=== PATIENT | female | born 1980 | race Caucasian/White ===

== ENCOUNTER 2017-01-14 22:22 | Emergency (ER) | payer OTHER ==
[2017-01-14 22:36] VITALS: BMI 24.6
--- NOTE | 2017-01-14 23:02 | PDOC ---
History of Present Illness - General History Source: Patient Exam Limitations: No Limitations - History of Present Illness Initial Comments: 01/14/17 23:12 The patient is a 36 year old female with significant past medical history of left breast CA s/p left mastectomy and diabetes who presents to the ED with 1 day of generalized malaise. Patients last chemotherapy session was on Wednesday and she received a neulasta shot on Wednesday. The following day she started having body aches with subjective fever and nausea. She denies any known sick contacts. The patient denies chills, cough, diaphoresis, SOB, chest pain, abdominal pain, vomiting, and diarrhea. Allergies: NKDA Social History: No alcohol, tobacco, or drug use reported. Past Surgical History: s/p left mastectomy PCP: Dr. Kay Kc <Belle Gallegos - Last Filed: 01/15/17 01:41> - General History Source: Patient <Guru Shirley - Last Filed: 01/15/17 03:25> - General Chief Complaint: Weakness Stated Complaint: WEAKNESS Time Seen by Provider: 01/14/17 22:56 Past History <Belle Gallegos - Last Filed: 01/15/17 01:41> - Past Medical History Cancer: Yes (breast) Diabetes: Yes - Psycho/Social/Smoking Cessation Hx Anxiety: No Suicidal Ideation: No Smoking Status: No Smoking History: Never smoked Number of Cigarettes Smoked Daily: 0 <SkipsarahGuru - Last Filed: 01/15/17 03:25> - Past Medical History Allergies/Adverse Reactions: Allergies Allergy/AdvReac Type Severity Reaction Status Date / Time No Known Allergies Allergy Verified 01/14/17 22:33 Home Medications: Ambulatory Orders No Home Medications 0 dose .ROUTE UTDICT 01/07/13 Levofloxacin [Levaquin -] 500 mg PO DAILY #7 tablet 01/15/17 Review of Systems - Review of Systems Able to Perform ROS?: Yes Comments:: 01/14/17 23:13 CONSTITUTIONAL: +low grade fever, generalized malaise Absent: no chills, no fatigue EYES: Absent: visual changes ENT: Absent: ear pain, no sore throat CARDIOVASCULAR: Absent: chest pain, no palpitations RESPIRATORY: Absent: cough, no SOB GI: +nausea Absent: abdominal pain, no vomiting, no constipation, no diarrhea GENITOURINARY: Absent: dysuria, no frequency, no hematuria MUSKULOSKELETAL: +body aches SKIN: Absent: rash NEURO: Absent: headache <Belle Gallegos - Last Filed: 01/15/17 01:41> *Physical Exam - Vital Signs Last Vital Signs Temp Pulse Resp BP Pulse Ox 100 F H 94 H 18 82/34 99 01/14/17 22:33 01/14/17 22:33 01/14/17 22:33 01/14/17 22:33 01/14/17 22:33 - Physical Exam Comments: 01/14/17 23:13 GENERAL: Well-appearing, well-nourished. Mild distress. HEENT: Normocephalic, atraumatic. PERRL, EOM intact. CARDIOVASCULAR: Tachycardia. Normal S1, S2. Regular rhythm. PULMONARY: Clear to auscultation bilaterally. ABDOMEN: Soft, non-distended, non-tender. EXTREMITIES: Normal ROM in all four extremities. No gross deformities. SKIN: Warm, dry. No rash. Left mastectomy. NEUROLOGICAL: No focal neurological deficits. <Belle Gallegos - Last Filed: 01/15/17 01:41> - Vital Signs Last Vital Signs Temp Pulse Resp BP Pulse Ox 100 F H 94 H 18 82/34 99 01/14/17 22:33 01/14/17 22:33 01/14/17 22:33 01/14/17 22:33 01/14/17 22:33 <Guru Shirley - Last Filed: 01/15/17 03:25> ED Treatment Course - LABORATORY CBC & Chemistry Diagram: 01/14/17 23:20 01/14/17 23:20 - RADIOLOGY Radiograph Interpretation: 01/15/17 01:41 EXAM: X-RAY CHEST Reviewed by Imaging solution director: No focal lung consolidation or pleural effusions. Cardiomediastinal silhouette normal. Right chest infusion portion, catheter tip in lower SVC. 4 cm ovoid radiopacity projecting over left breast, probably object in or outside patient. <Belle Gallegos - Last Filed: 01/15/17 01:41> - LABORATORY CBC & Chemistry Diagram: 01/14/17 23:20 01/14/17 23:20 <Guru Shirley - Last Filed: 01/15/17 03:25> Medical Decision Making - Medical Decision Making 01/15/17 03:23 Dr. Shirley: The scribe's documentation has been prepared under my direction and personally reviewed by me in its entirery. I confirm that the note above accurately reflects all work, treatment, procedures, and medical decision making performed by me. Pt presents with low grade fever after chemo. WBC 20. Pt states she can follow up with her Oncologist today. Rx Levaquin 500mg PO sent to pharmacy <Guru Shirley - Last Filed: 01/15/17 03:25> *DC/Admit/Observation/Transfer - Attestations Scribe Attestion: 01/14/17 23:13 Documentation prepared by Belle Gallegos, acting as medical office rep for Guru Shirley MD <Belle Gallegos - Last Filed: 01/15/17 01:41> - Discharge Dispostion Admit: No <Guru Shirley - Last Filed: 01/15/17 03:25> Diagnosis at time of Disposition: Weakness UTI (urinary tract infection) Qualifiers: Urinary tract infection type: site unspecified Hematuria presence: without hematuria Qualified Code(s): N39.0 - Urinary tract infection, site not specified - Discharge Dispostion Disposition: HOME Condition at time of disposition: Stable - Referrals Referrals: Kay Kc MD [Primary Care Provider] - - Patient Instructions Printed Discharge Instructions: DI for Urinary Tract Infection (UTI)
[2017-01-14] MEDS ORDERED: IBUPROFEN 800 MG/8 ML IJ IVPB ONE ×2 (23:04→23:17)
[2017-01-14] MEDS ORDERED: SODIUM CHLORIDE 1,000 ML IV STA (23:04)
[2017-01-14 23:32] LABS: MCH 30.8 pg (25.7-33.7); MCHC 33.8 g/dl (32.0-36.0); MEAN CELL VOLUME 91.3 fl (80-96); MEAN PLT VOLUME 8.3 fl (7.5-11.1); PLATELET COUNT 208 K/MM3 (134-434); RDW 13.3 % (11.6-15.6); WHITE BLOOD COUNT 20.6 K/mm3 (4.0-10.0)
[2017-01-14 23:52] LABS: INR 1.05 (0.82-1.09); PROTHROMBIN TIME (PATIENT) 11.6 SEC (9.98-11.88)
[2017-01-15 00:01] LABS: ALBUMIN 3.1 g/dl (3.4-5.0); ANION GAP 9 (8-16); CALCIUM 8.4 mg/dL (8.5-10.1); CO2 31 mmol/L (21-32); GLUCOSE,RANDOM 118 mg/dL (74-106); MAGNESIUM 1.6 mg/dL (1.8-2.4); SGOT/AST 13 U/L (15-37); SGPT/ALT 14 U/L (12-78)
[2017-01-15 00:04] LABS: ALK PHOS 107 U/L (45-117); BILIRUBIN,TOTAL 0.3 mg/dL (0.2-1.0); CREATININE 0.8 mg/dL (0.55-1.02); TOT PROT 5.9 g/dl (6.4-8.2)
[2017-01-15] MEDS ORDERED: SODIUM CHLORIDE 1,000 ML IV STA (00:48)
[2017-01-15 01:49] VITALS: PULSE 80; TEMP 99.5
[2017-01-15] MEDS ORDERED: CEFTRIAXONE 50 ML ONE (02:53)
[2017-01-15 03:01] LABS: URINE APPEARANCE CLEAR; URINE BILIRUBIN NEGATIVE (NEGATIVE); URINE BLOOD NEGATIVE (NEGATIVE); URINE COLOR STRAW; URINE GLUCOSE (UA) NEGATIVE (NEGATIVE); URINE KETONE NEGATIVE (NEGATIVE); URINE NITRITE NEGATIVE (NEGATIVE); URINE PROTEIN NEGATIVE (NEGATIVE); URINE UROBILINOGEN NEGATIVE E.U./dl (0.2-1.0)
[2017-01-15 03:02] LABS: URINE LEUK ESTERASE TRACE (NEGATIVE)
[2017-01-15 03:04] LABS: URINE BACTERIA RARE /hpf (NONE SEEN); URINE RBC 1 /hpf (0-3); URINE WBC 7 /hpf (3-5)
[2017-01-15 03:32] LABS: ANISOCYTOSIS 1+; HYPOCHROMIA 1+; PLATELET COMMENT2 NO CLOTTING DETECTED; PLATELET ESTIMATE ADEQUATE (NORMAL)
[2017-01-15 03:44] VITALS: BP 113/54
== END 2017-01-15 03:44 | disposition home or self-care (01) ==
LOC: JER 22:22
PROC: 3E0337Z Introduction of Electrolytic and Water Balance Substance into Peripheral Vein, Percutaneous Approach (ICD-10-PCS; principal; 2017-01-14)
PROC: 3E03329 Introduction of Other Anti-infective into Peripheral Vein, Percutaneous Approach (ICD-10-PCS; 2017-01-14)
PROC: 3E0333Z Introduction of Anti-inflammatory into Peripheral Vein, Percutaneous Approach (ICD-10-PCS; 2017-01-14)
DX: N39.0 Urinary tract infection, site not specified (principal); E11.9 Type 2 diabetes mellitus without complications; Z85.3 Personal history of malignant neoplasm of breast; Z90.12 Acquired absence of left breast and nipple
CPT/HCPCS: 36415; 71020-TC; 80053; 81003; 81015; 83735; 84703; 85025; 85610; 87086; 87804; 99282-25

== ENCOUNTER 2021-02-03 15:37 | Emergency (ER) | payer OTHER ==
[2021-02-03 16:21] VITALS: TEMP 98.8; BMI 27.1
[2021-02-03] MEDS ORDERED: BAMLANIVIMAB 700 MG, ETESEVIMAB 1,400 MG in SODIUM CHLORIDE 250 ML IVPB ONE (16:26)
[2021-02-03 19:47] VITALS: BP 100/60; PULSE 73
[2021-02-03 21:13] LABS: BASO % 0.5 % (0-2.0); EOS % 1.6 % (0-4.5); HEMATOCRIT 37.5 % (32.4-45.2); HEMOGLOBIN 12.6 GM/dL (10.7-15.3); LYMPH % 48.5 % (8-40); MCH 31.4 pg (25.7-33.7); MCHC 33.7 g/dl (32.0-36.0); MEAN CELL VOLUME 93.1 fl (80-96); MEAN PLT VOLUME 9.2 fl (7.5-11.1); MONO % 9.8 % (3.8-10.2); NEUT % 39.6 % (42.8-82.8); PLATELET COUNT 179 K/MM3 (134-434); RBC 4.02 M/mm3 (3.60-5.2); RDW 13.4 % (11.6-15.6); WHITE BLOOD COUNT 4.3 K/mm3 (4.0-10.0)
[2021-02-03 21:25] LABS: POTASSIUM 5.5 mmol/L (3.5-5.1)
[2021-02-03 21:26] LABS: CALCIUM 9.2 mg/dL (8.5-10.1)
[2021-02-03 21:30] LABS: CREATININE 0.7 mg/dL (0.55-1.3)
== END 2021-02-03 19:55 | disposition home or self-care (01) ==
LOC: JER 15:37
DX: U07.1 COVID-19 (principal)
CPT/HCPCS: 36415; 80048; 85025; 99284-25; M0239; Q0239; Q0245